=== PATIENT | female | born 1990 | race American Indian/Alaskan Native ===

== ENCOUNTER 2017-10-31 16:44 | Emergency (ER) | payer MEDICAID ==
[2017-10-31 18:57] VITALS: BP 120/70
[2017-10-31] MEDS ORDERED: ZOFRAN IV ONE (20:59)
[2017-10-31] MEDS ORDERED: NACL 0.9% 1000 ML 1,000 ML IV ONE (20:59)
--- NOTE | 2017-10-31 20:59 | Emergency Department Report ---
Blank Doc - Documentation Documentation: Patient is a 27 years old 8 weeks who is presenting with 2 weeks of nausea vomiting and dizziness. Patient denies any diarrhea. Patient has some epigastric discomfort and burning sensation sometimes in the chest. Patient given IV fluids check basic labs urinalysis and will be given antiemetics.
[2017-10-31 21:27] LABS: Basophils % (Auto) 0.4 % (0.0-1.8); Eosinophils # (Auto) 0.1 K/mm3 (0.0-0.4); Eosinophils % (Auto) 0.7 % (0.0-4.3); Hematocrit 40.4 % (30.3-42.9); Hemoglobin 14.3 gm/dl (10.1-14.3); Lymphocytes # (Auto) 1.9 K/mm3 (1.2-5.4); Lymphocytes % (Auto) 18.2 % (13.4-35.0); Mean Corpuscular HGB Conc 35 % (30-34); Mean Corpuscular Hemoglobin 29 pg (28-32); Mean Corpuscular Volume 82 fl (79-97); Monocytes % (Auto) 9.7 % (0.0-7.3); Platelet Count 355 K/mm3 (140-440); Red Blood Count 4.91 M/mm3 (3.65-5.03); Red Cell Distribution Width 12.7 % (13.2-15.2)
[2017-10-31] MEDS ORDERED: D5NS 1,000 ML IV SCH (22:00)
[2017-10-31 23:21] LABS: BUN/Creatinine Ratio 12; Blood Urea Nitrogen 6 mg/dL (7-17); Calcium 8.3 mg/dL (8.4-10.2); Hemolysis Index 15
--- NOTE | 2017-10-31 23:30 | Emergency Department Report ---
ED N/V/D HPI - General Chief complaint: Nausea/Vomiting/Diarrhea Stated complaint: NAUSEA/VOMITING/ Time Seen by Provider: 10/31/17 20:55 Source: patient Mode of arrival: Ambulatory Limitations: No Limitations - History of Present Illness Initial comments: This is a 27-year-old female nontoxic, well nourished in appearance, no acute signs of distress presents to the ED with c/o of nausea, vomiting and slight dizziness. 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 Patient denies any vaginal bleeding, back pain, fever, chills, nausea, vomiting, body aches, chest pain or shortness of breath. Patient states she has burning sensation in her Chest during a vomiting episode but otherwise does not. Patient denies any allergies or significant past medical history. MD complaint: nausea, vomiting -: week(s) (2) Description of Vomiting: food contents Associated Abdominal Pain: No Radiation: none Consistency: constant Improves with: none Worsens with: none Associated Symptoms: denies other symptoms. denies: myalgias, chest pain, cough , diaphoresis, fever/chills, headaches, loss of appetite, malaise, nausea/ vomiting, rash, dysuria, shortness of breath, syncope, weakness - Related Data Previous Rx's Medication Instructions Recorded Last Taken Type Metoclopramide [Reglan] 10 mg PO Q8H PRN #20 tab 10/31/17 Unknown Rx Allergies Allergy/AdvReac Type Severity Reaction Status Date / Time No Known Allergies Allergy Verified 10/31/17 21:23 ED Review of Systems ROS: Stated complaint: NAUSEA/VOMITING/ Other details as noted in HPI Constitutional: denies: chills, fever Eyes: denies: eye pain, eye discharge, vision change ENT: denies: ear pain, throat pain Respiratory: denies: cough, shortness of breath, wheezing Cardiovascular: denies: chest pain, palpitations Endocrine: no symptoms reported Gastrointestinal: nausea, vomiting. denies: abdominal pain, diarrhea Genitourinary: denies: urgency, dysuria, discharge Musculoskeletal: denies: back pain, joint swelling, arthralgia Skin: denies: rash, lesions Neurological: denies: headache, weakness, paresthesias Psychiatric: denies: anxiety, depression Hematological/Lymphatic: denies: easy bleeding, easy bruising ED Past Medical Hx - Past Medical History Previous Medical History?: No - Surgical History Additional Surgical History: c sect - Social History Smoking Status: Former Smoker Substance Use Type: None - Medications Home Medications: Home Medications Medication Instructions Recorded Confirmed Last Taken Type Metoclopramide [Reglan] 10 mg PO Q8H PRN #20 tab 10/31/17 Unknown Rx ED Physical Exam - General Limitations: No Limitations General appearance: alert, in no apparent distress - Head Head exam: Present: atraumatic, normocephalic - Eye Eye exam: Present: normal appearance Pupils: Present: normal accommodation - ENT ENT exam: Present: normal exam, normal orophraynx, mucous membranes moist, TM's normal bilaterally, normal external ear exam - Neck Neck exam: Present: normal inspection, full ROM. Absent: tenderness, meningismus, lymphadenopathy, thyromegaly - Respiratory Respiratory exam: Present: normal lung sounds bilaterally. Absent: respiratory distress, wheezes, rales, rhonchi, stridor, chest wall tenderness, accessory muscle use, decreased breath sounds, prolonged expiratory - Cardiovascular Cardiovascular Exam: Present: regular rate, normal rhythm, tachycardia, normal heart sounds. Absent: irregular rhythm, systolic murmur, diastolic murmur, rubs , gallop - GI/Abdominal GI/Abdominal exam: Present: soft, normal bowel sounds. Absent: distended, tenderness, guarding, rebound, rigid, diminished bowel sounds - Expanded GI/Abdominal Exam Expanded GI/Abdominal exam: Absent: psoas sign, obturator sign, heel tap sign, Castro's sign, Rovsing's sign, tenderness at Mcburney's Point, ascites - Rectal Rectal exam: Present: deferred - Extremities Exam Extremities exam: Present: normal inspection, full ROM, normal capillary refill. Absent: tenderness, pedal edema, joint swelling, calf tenderness - Back Exam Back exam: Present: normal inspection, full ROM. Absent: tenderness, CVA tenderness (R), CVA tenderness (L), muscle spasm, paraspinal tenderness, vertebral tenderness, rash noted - Neurological Exam Neurological exam: Present: alert, oriented X3, CN II-XII intact, normal gait, reflexes normal - Psychiatric Psychiatric exam: Present: normal affect, normal mood - Skin Skin exam: Present: warm, dry, intact, normal color. Absent: rash ED Course Vital Signs 02/15/18 18:51 Temperature 99.4 F Pulse Rate 126 H Respiratory 18 Rate Blood Pressure 120/70 O2 Sat by Pulse 97 Oximetry - Reevaluation(s) Reevaluation #1: 10/31/17 23:30 Patient is speaking in full sentences with no signs of distress noted. ED Medical Decision Making - Lab Data Result diagrams: 10/31/17 21:08 10/31/17 23:00 - Medical Decision Making This is a 27-year-old female that presents with hyperemesis gravidarum. Patient is stable and was examined by me and Dr. Davies. Labs obtained. Patient received 1L of Normal saline and 4 mg of Zofran IV. PAtient drank 4 apple juices and tolerated well with no nausea or vomiting noted. Patient is discharge with reglan. Patient was instructed to increase hydration. Patient was instructed to Follow-up with a SHIPPING ORDER CLERK doctor in 3-5 days or if symptoms worsen and continue return to emergency room as soon as possible. At time of discharge, the patient does not seem toxic or ill in appearance. No acute signs of distress noted. Patient agrees to discharge treatment plan of care. No further questions noted by the patient. Critical care attestation.: If time is entered above; I have spent that time in minutes in the direct care of this critically ill patient, excluding procedure time. ED Disposition Clinical Impression: Hyperemesis gravidarum Disposition: DC-01 TO HOME OR SELFCARE Is pt being admited?: No Does the pt Need Aspirin: No Condition: Stable Instructions: Metoclopramide (By mouth), Hyperemesis Gravidarum (ED) Additional Instructions: Follow-up with a SHIPPING ORDER CLERK doctor in 3-5 days or if symptoms worsen and continue return to emergency room as soon as possible. Prescriptions: Metoclopramide [Reglan] 10 mg PO Q8H PRN #20 tab PRN Reason: Nausea Referrals: PRIMARY CARE, [Primary Care Provider] - 3-5 Days МАРИНА CORTES MD [Staff Physician] - 3-5 Days [facility] [Outside] - 3-5 Days [facility] [Outside] - 3-5 Days Forms: Work/School Release Form(ED)
== END 2017-11-01 01:05 | disposition home or self-care (01) ==
LOC: ED 16:44
DX: O21.0 Mild hyperemesis gravidarum (principal); Z3A.08 8 weeks gestation of pregnancy
CPT/HCPCS: 36415; 80048; 85025; 96361; 96374; 99283; J2405; J7030; J7042

== ENCOUNTER 2017-11-06 18:03 | Observation (INO) | payer MEDICAID, OTHER ==
[2017-11-06 18:34] LABS: Basophils % (Auto) 0.4 % (0.0-1.8); Eosinophils # (Auto) 0.1 K/mm3 (0.0-0.4); Eosinophils % (Auto) 0.6 % (0.0-4.3); Hematocrit 38.6 % (30.3-42.9); Hemoglobin 13.4 gm/dl (10.1-14.3); Lymphocytes # (Auto) 2.3 K/mm3 (1.2-5.4); Lymphocytes % (Auto) 20.8 % (13.4-35.0); Mean Corpuscular HGB Conc 35 % (30-34); Mean Corpuscular Hemoglobin 28 pg (28-32); Mean Corpuscular Volume 81 fl (79-97); Monocytes # (Auto) 1.1 K/mm3 (0.0-0.8); Monocytes % (Auto) 10.5 % (0.0-7.3); Platelet Count 365 K/mm3 (140-440); Red Blood Count 4.75 M/mm3 (3.65-5.03); Red Cell Distribution Width 12.5 % (13.2-15.2)
[2017-11-06 18:45] LABS: Alanine Aminotransferase 9 units/L (7-56); Albumin 4.5 g/dL (3.9-5); BUN/Creatinine Ratio 14; Blood Urea Nitrogen 7 mg/dL (7-17); Calcium 9.4 mg/dL (8.4-10.2); Hemolysis Index 20
[2017-11-06 18:55] LABS: Bilirubin,Urine NEG (Negative); Blood,Urine NEG (Negative); Color,Urine Yellow (Yellow); Mucus,Urine 3+ /HPF
[2017-11-06] MEDS ORDERED: ZOFRAN IV PRN (21:08)
--- NOTE | 2017-11-06 21:42 | History and Physical Report ---
History of Present Illness Date of examination: 11/06/17 Date of admission: 11/06/2017 Chief complaint: Nausea and vomiting "I can't keep anything down" History of present illness: 27yo G 5 P 1 1 2 2 @ 8 weeks 6 days by LMP of 09/05/2017 here with c/o nausea and vomiting. She was seen at [facility] today for NOB visit and sent for direct admission secondary to hyperemesis gravidum. She reports inability to keep anything down for the past 3 weeks, 20 lbs weight loss, fatigue, lightheadedness and excessive salivation. She has a h/o at 36 weeks secondary to IOL for IUGR. Past History Past Medical History: no pertinent history Past Surgical History: no surgical history Family/Genetic History: none Social history: no significant social history - Obstetrical History Expected Date of Delivery: 06/12/18 Actual Gestation: 8 Week(s) 6 Day(s) : 5 Para: 2 Hx # Term Pregnancies: 1 Number of Pregnancies: 1 Spontaneous Abortions: 0 Induced : 2 Number of Living Children: 2 Medications and Allergies Allergies Allergy/AdvReac Type Severity Reaction Status Date / Time No Known Allergies Allergy Verified 10/31/17 21:23 Home Medications Medication Instructions Recorded Confirmed Last Taken Type Metoclopramide [Reglan] 10 mg PO Q8H PRN #20 tab 10/31/17 Unknown Rx Active Meds: Active Medications Dextrose/Lactated Ringer's (D5lr) 1,000 mls @ 500 mls/hr IV DIRECT GINA Stop: 11/07/17 23:59 Dextrose/Lactated Ringer's (D5lr) 1,000 mls @ 150 mls/hr IV DIRECT GINA Metoclopramide HCl (Reglan) 10 mg IV Q6H [facility] Multivitamins/Iron/Calcium ( Vitamin) 1 each PO QDAY GINA Ondansetron HCl (Zofran) 4 mg IV Q6H PRN PRN Reason: N/V unrelieved by Reglan Promethazine HCl (Phenergan) 25 mg [place] Q6H GINA Review of Systems Constitutional: weight loss, fatigue, weakness, poor appetite Cardiovascular: lightheadedness, no chest pain, no palpitations, no shortness of breath Gastrointestinal: nausea, vomiting, loss of appetite - Vital Signs Vital signs: Vital Signs Temp Pulse Resp BP Pulse Ox 97.8 F 117 H 20 118/79 98 11/06/17 18:11 11/06/17 18:11 11/06/17 18:11 11/06/17 18:11 11/06/17 18:11 Temp Pulse Resp BP Pulse Ox 97.8 F 117 H 20 118/79 98 11/06/17 18:11 11/06/17 18:11 11/06/17 18:11 11/06/17 18:11 11/06/17 18:11 - Physical Exam Cardiovascular: Regular rate, Normal S1, Normal S2, No murmurs Lungs: Positive: Clear to auscultation, Normal air movement Abdomen: Positive: normal appearance, soft Extremities: Positive: normal Deep Tendon Reflex Grade: Normal +2 Results Result Diagrams: 11/06/17 18:20 11/06/17 18:20 Abnormal lab results 11/06/17 11/06/17 11/06/17 Range/Units 18:20 18:20 18:39 MCHC 35 H (30-34) % RDW 12.5 L (13.2-15.2) % [place] % (Auto) 10.5 H (0.0-7.3) % [place] # 1.1 H (0.0-0.8) K/mm3 Sodium 133 L (137-145) mmol/L Chloride 92.8 L (98-107) mmol/L Creatinine 0.5 L (0.7-1.2) mg/dL Ur Specific [place] 1.031 H (1.003-1.030) All other labs normal. Assessment and Plan - Patient Problems (1) Hyperemesis gravidarum Status: Acute Plan to address problem: Admit to Mother/Baby for IV hydration, antiemetics, and blood work NPO now, then progressive diet as tolerated Anticipate discharge to home on 11/07/17 (2) 8 weeks gestation of Status: Acute
[2017-11-06] MEDS: D5LR 1,000 ML IV SCH (22:27)
[2017-11-06] MEDS: PHENERGAN PR SCH (22:27)
[2017-11-06] MEDS: REGLAN IV SCH (22:27)
[2017-11-06 22:43] LABS: Lipase 14 units/L (13-60)
[2017-11-07] MEDS: D5LR 1,000 ML IV SCH ×4 (00:45→21:42)
[2017-11-07] MEDS: REGLAN IV SCH ×4 (04:31→21:43)
[2017-11-07] MEDS: PHENERGAN PR SCH ×4 (04:33→21:43)
--- NOTE | 2017-11-07 11:26 | Progress Note ---
Assessment and Plan A: IUP at 8 Weeks Hyperemesis P: Consult Dr. Shah Continue current plan of care Subjective - Subjective Date of service: 11/07/17 Patient reports: ambulating normally, other (Denies vomitting today; but constantly spitting saliva. States as long as she is on IV fluids vomiting is controlled; but off of IV fluids she can not keep food or liquids down. States she has not eaten in 3 weeks) Objective - Vital Signs Latest vital signs: Vital Signs Temp Pulse Resp BP BP Pulse Ox 11/07/17 08:43 97.9 F 89 16 100/60 98 11/07/17 04:00 98.7 F 79 18 104/78 11/07/17 00:30 98.7 F 71 16 100/69 11/06/17 21:30 98.6 F 66 18 105/64 11/06/17 18:11 97.8 F 117 H 20 118/79 98 Intake and Output 11/06/17 11/07/17 11/07/17 22:59 06:59 14:59 Intake Total 1000 947.5 Balance 1000 947.5 Intake: IV 1000 947.5 D5lr 1,000 ml @ 150 mls/ 947.5 hr IV DIRECT GINA Rx#: [id number] D5lr 1,000 ml @ 500 mls/ 1000 hr IV DIRECT GINA Rx#: [id number] Other: Voiding Method Toilet Weight 68.6 kg 68.6 kg - Exam Breasts: Present: normal Cardiovascular: Present: Regular rate Lungs: Present: Normal air movement Abdomen: Present: soft, normal bowel sounds Extremities: Present: normal - Labs Labs: Abnormal lab results 11/06/17 11/06/17 11/06/17 Range/Units 18:20 18:20 18:39 MCHC 35 H (30-34) % RDW 12.5 L (13.2-15.2) % [place] % (Auto) 10.5 H (0.0-7.3) % [place] # 1.1 H (0.0-0.8) K/mm3 Sodium 133 L (137-145) mmol/L Chloride 92.8 L (98-107) mmol/L Creatinine 0.5 L (0.7-1.2) mg/dL Ur Specific [place] 1.031 H (1.003-1.030)
[2017-11-07] MEDS: PRENATAL VITAMIN PO SCH (11:29)
[2017-11-08] MEDS: REGLAN IV SCH ×3 (03:54→16:41)
[2017-11-08] MEDS: D5LR 1,000 ML IV SCH (04:00)
[2017-11-08] MEDS: PHENERGAN PR SCH ×2 (04:01→11:38)
--- NOTE | 2017-11-08 10:05 | Progress Note ---
Assessment and Plan - Patient Problems (1) Hyperemesis gravidarum Current Visit: No Status: Acute Plan to address problem: Discontinue IV hydration Encourage PO hydration, as tolerated Continue antiemetics prn Trial of regular diet for lunch Discharge to home if tolerating regular diet (2) 9 weeks gestation of Current Visit: Yes Status: Acute Subjective - Subjective Date of service: 11/08/17 Principal diagnosis: Hyperemesis gravidum, 9 weeks Gestation Interval history: 27yo G 5 P 1 1 2 2 @ 8 weeks 6 days by LMP of 09/05/2017 here with c/o nausea and vomiting. She was seen at [facility] today for NOB visit and sent for direct admission secondary to hyperemesis gravidum. She reports inability to keep anything down for the past 3 weeks, 20 lbs weight loss, fatigue, lightheadedness and excessive salivation. She has a h/o at 36 weeks secondary to IOL for IUGR. Patient reports: other (Currently on Full liquid diet and tolerating it well. Reports she is feeling better.), no loss of fluid, no vaginal bleeding, no contractions Objective - Vital Signs Vital Signs: Vital Signs - 12hr 11/07/17 11/08/17 11/08/17 23:30 04:10 08:52 Temperature 98.5 F 98.6 F 98.2 F Pulse Rate 72 74 78 Respiratory 18 18 18 Rate Blood Pressure 94/50 99/62 104/61 [Right] O2 Sat by Pulse 98 98 97 Oximetry - Exam Cardiovascular: Regular rate, Normal S1, Normal S2, No murmurs Lungs: Clear to auscultation, Normal air movement Abdomen: Present: normal appearance, soft Extremities: normal Deep Tendon Reflex Grade: Normal +2 - Labs Labs: Abnormal Labs 11/06/17 11/06/17 11/06/17 18:20 18:20 18:39 MCHC 35 H RDW 12.5 L [place] % (Auto) 10.5 H [place] # 1.1 H Sodium 133 L Chloride 92.8 L Creatinine 0.5 L Ur Specific [place] 1.031 H
[2017-11-08] MEDS: PRENATAL VITAMIN PO SCH (11:38)
--- NOTE | 2017-11-08 17:58 | Discharge Summary ---
Providers - Providers Date of Admission: 11/06/17 21:42 Date of discharge: 11/08/17 Attending physician: RACHEL THOMPSON MD Primary care physician: RACHEL THOMPSON MD Hospitalization Reason for admission: other (hyperemesis gravidum) Hospital course: Uncomplicated. Patient tolerating solids without any vomiting Condition at discharge: Stable Disposition: DC-01 TO HOME OR SELFCARE - Discharge Diagnoses (1) Hyperemesis gravidarum Status: Acute (2) 9 weeks gestation of Status: Acute Plan - Provider Discharge Summary Activity: routine Diet: routine Instructions: routine (Continue taking medication for nausea and vomiting as directed) Additional instructions: [] Smoking cessation referral if applicable(refer to patient education folder for contact #) [] Refer to [facility] Booklet Call your doctor immediately for: * Fever > 100.5 * Heavy vaginal bleeding ( >1 pad per hour) * Severe persistent headache * Shortness of breath * Reddened, hot, painful area to leg or breast * Drainage or odor from incision. * Keep incision clean and dry at all times and follow doctor's instructions regarding bathing/showering - Follow up plan Follow up: RACHEL THOMPSON MD [Primary Care Provider] - 7 Days (Follow up at [facility]/ DIRECTOR OF RETAIL MERCHANDISING in 1 week)
[2017-11-08 18:51] VITALS: BP 110/67
== END 2017-11-08 18:30 | disposition home or self-care (01) ==
LOC: EDSTATUS 21:34 → TRG 21:40 → OB 21:42
PROVIDERS: ADMIT Obstetrics & Gynecology; ATTEND Obstetrics & Gynecology
DX: O21.0 Mild hyperemesis gravidarum (principal); Z3A.09 9 weeks gestation of pregnancy
CPT/HCPCS: 36415; 80053; 81001; 82150; 83690; 84443; 85025; 96361; 96374; 96375; 96376; G0378; J2405; J2765; J7121